=== PATIENT | female | born 1955 | race Caucasian/White ===

== ENCOUNTER → 2017-03-25 | Outpatient (CLI) | payer OTHER ==
--- NOTE | 2017-03-25 14:57 | REPMRS ---
Patient History The patient states she had a clinical breast exam in 02/2017. Patient is postmenopausal. Family history of colorectal cancer in paternal grandfather at age 50 or over and breast cancer in maternal aunt at age 50 or over. Benign excisional biopsy of the right breast, 2004. Taking estrogen for 12 years. Digital Woman Screen Mammo: March 25, 2017 - Exam #: [id number] Bilateral CC and MLO view(s) were taken. Technologist: Janie Marino, Technologist Prior study comparison: March 10, 2016, digital woman screen mammo performed at [facility]. March 05, 2015, digital woman screen mammo performed at [facility]. March 03, 2014, digital woman screen mammo performed at [facility]. FINDINGS: The breast tissue is heterogeneously dense. This may lower the sensitivity of mammography. There is a moderate amount of heterogeneously dense fibroglandular tissue which is fairly symmetric. There is no interval development of dominant mass, architectural distortion, or clustered microcalcification typical of malignancy. There has been no change in the appearance of the mammogram from the prior studies. ASSESSMENT: BI-RADS/ACR category 1 mammogram. Negative. Recommendation Routine screening mammogram of both breasts in 1 year (for women over age 40). This mammogram was interpreted with the aid of an FDA-approved computer-aided dectection system. Electronically Signed By: Adrian Bella MD 03/25/17 [id number]
== END ==
LOC: M WHC 14:02
PROVIDERS: ATTEND Nurse Practitioner Family
DX: Z12.31 Encounter for screening mammogram for malignant neoplasm of breast (principal); Z78.0 Asymptomatic menopausal state

== ENCOUNTER → 2017-03-25 | Outpatient (REF) | payer OTHER | LOC: M SFHCWAGY 14:30 | PROVIDERS: ATTEND Nurse Practitioner Family | DX: Z12.4 Encounter for screening for malignant neoplasm of cervix (principal) ==

== ENCOUNTER → 2018-03-26 | Outpatient (REF) | payer OTHER ==
[2018-03-31 00:06] LABS: HPV HYBRID CAPTURE II Negative (Negative)
== END ==
LOC: M SFHCWAGY 10:01
DX: Z12.4 Encounter for screening for malignant neoplasm of cervix (principal); N95.2 Postmenopausal atrophic vaginitis
CPT/HCPCS: G0123

== ENCOUNTER → 2018-03-26 | Outpatient (CLI) | payer OTHER | LOC: M WHC 09:33 | DX: Z12.31 Encounter for screening mammogram for malignant neoplasm of breast (principal); R92.1 Mammographic calcification found on diagnostic imaging of breast; Z78.0 Asymptomatic menopausal state; Z86.018 Personal history of other benign neoplasm; Z92.23 Personal history of estrogen therapy | CPT/HCPCS: 77067 ==

== ENCOUNTER → 2019-05-13 | Outpatient (CLI) | payer OTHER ==
--- NOTE | 2019-05-13 17:37 | REPMRS ---
Patient History The patient states she had a clinical breast exam in 04/2018. Patient is postmenopausal. Family history of breast cancer at age 50 or over in maternal aunt, colorectal cancer at age 50 or over in paternal grandfather. Benign excisional biopsy of the right breast, 2004. Took estrogen for 13 years. Digital Woman Screen Mammo: May 13, 2019 - Exam #: [id number] Bilateral CC and MLO view(s) were taken. Technologist: Janie Marino, Technologist Prior study comparison: March 26, 2018, bilateral digital woman screen mammo performed at [facility] [place]. March 25, 2017, digital woman screen mammo performed at [facility] [place]. March 10, 2016, digital woman screen mammo performed at [facility]. FINDINGS: The breast tissue is extremely dense which could obscure a lesion on mammography. There is an extremely dense symmetrical pattern of residual fibroglandular tissue. There has been no change in the appearance of the mammogram from the previous studies. There is no interval development of dominant mass, archetectural distortion, or grouped microcalcifications suggestive of malignancy. 3-D tomosynthesis shows no additional findings. Assessment: BI-RADS/ACR category 1 mammogram. Negative Mammogram. Recommendation Routine screening mammogram of both breasts in 1 year (for women over age 40). This patient's Lifetime Breast Cancer RIsk is estimated at 9.2 %. This mammogram was interpreted with the aid of an FDA-approved computer-aided dectection system. Electronically Signed By: Adrian Bella MD 05/13/19 0191
== END ==
LOC: M WHC 11:26
PROVIDERS: ATTEND Nurse Practitioner Family
DX: Z12.31 Encounter for screening mammogram for malignant neoplasm of breast (principal)

== ENCOUNTER → 2020-05-15 | Outpatient (CLI) | payer MEDICARE ==
--- NOTE | 2020-05-15 09:49 | REPMRS ---
Patient History The patient states she had a clinical breast exam in 2020. Family history of breast cancer at age 50 or over in maternal aunt, colorectal cancer at age 50 or over in paternal grandfather. Benign excisional biopsy of the right breast, 2004. Took estrogen for 13 years. 3D TOMOSYNTHESIS WAS PERFORMED. [facility] lifetime risk for breast cancer is 8.8%. Volpara breast density c. Digital Woman Screen Mammo: May 15, 2020 - Exam #: [id number] Bilateral CC and MLO view(s) were taken. Technologist: Noy Rivers, Technologist Prior study comparison: May 13, 2019, bilateral digital woman screen mammo performed at [facility]. March 26, 2018, bilateral digital woman screen mammo performed at [facility]. FINDINGS: The breast tissue is heterogeneously dense. This may lower the sensitivity of mammography. There has been no change in the appearance of the mammogram from the prior studies. There is a moderate amount of residual fibroglandular tissue which is fairly symmetric. There is no interval development of dominant mass, areas of architectural distortion, or clustered microcalcification typical of malignancy. Assessment: BI-RADS/ACR category 1 mammogram. Negative Mammogram. Recommendation Routine screening mammogram in 1 year (for women over age 40). This mammogram was interpreted with the aid of an FDA-approved computer-aided dectection system. Electronically Signed By: Juanito Dumont MD 05/15/20 0948
== END ==
LOC: M WHC 08:30
PROVIDERS: ATTEND Nurse Practitioner Family
DX: Z01.419 Encounter for gynecological examination (general) (routine) without abnormal findings (principal); Z12.31 Encounter for screening mammogram for malignant neoplasm of breast; Z86.018 Personal history of other benign neoplasm; Z92.23 Personal history of estrogen therapy
CPT/HCPCS: 77063; 77067; 87624; G0123; G0463

== ENCOUNTER → 2020-05-15 | Outpatient (REF) | payer MEDICARE | LOC: M SFHCWAGY 13:17 | PROVIDERS: ATTEND Nurse Practitioner Family | DX: Z12.4 Encounter for screening for malignant neoplasm of cervix (principal); N95.2 Postmenopausal atrophic vaginitis | CPT/HCPCS: 87624; G0123 ==

== ENCOUNTER → 2020-05-17 | Outpatient (CLI) | payer MEDICARE ==
--- NOTE | 2020-05-17 10:45 | DEXAMM ---
INDICATION: Z78.0 ASYMPTOMATIC MENOPAUSAL STATE. COMPARISON: 03/05/2015 as well as other prior exams. TECHNIQUE: Bone density was measured using dual-energy x-ray absorptiometry (DEXA). FINDINGS: AP SPINE L1-L4 BMD 1.076 g/cm2 Young Adult T-Score is -1.0 Age Matched Z-Score . LT FEMUR, TOTAL BMD 0.6 0.839 g/cm2 Young Adult T-Score -1.3 Age Matched Z-Score -0.1. LT NECK BMD 0.816 g/cm2 Young Adult T-Score -1.6 Age Matched Z-Score -0.1. RT FEMUR, TOTAL BMD 0.854 g/cm2 Young Adult T-Score -1.2 Age Matched Z-Score 0.0. RT NECK BMD 0.859 g/cm2 Young Adult T-Score -1.3 Age Matched Z-Score 0.2. IMPRESSION: There is low bone density of the spine. There is low bone density of the left hip. There is low bone density of the right hip. The density of the spine has decreased 8.0% since the initial exam on 04/29/2005. The density of the spine decreased 2.0% since most recent exam on 03/05/2015. The density of the left hip has decreased 13.2% since initial exam on 04/29/2005. The density of the left hip has decreased 6.0% since most recent exam on 03/05/2015. The density of the right hip has decreased 8.2% since the initial exam on 04/29/2005. The density of the right hip has decreased 1.5% since the most recent exam on 03/05/2015. FOLLOW-UP: Recommendation for the next bone density exam: 2 years. <Electronically signed by Juanito Dumont > 05/17/20 [id number]
== END ==
LOC: M WHC 10:02
PROVIDERS: ATTEND Nurse Practitioner Family
DX: Z78.0 Asymptomatic menopausal state (principal)

== ENCOUNTER → 2021-05-22 | Outpatient (CLI) | payer MEDICARE | LOC: M WHC 08:01 | PROVIDERS: ATTEND Nurse Practitioner Women's Health | DX: Z12.31 Encounter for screening mammogram for malignant neoplasm of breast (principal); Z80.3 Family history of malignant neoplasm of breast; Z86.018 Personal history of other benign neoplasm; Z92.23 Personal history of estrogen therapy ==

== ENCOUNTER → 2022-08-14 | Outpatient (CLI) | payer MEDICARE | LOC: M WHC 13:32 | PROVIDERS: ATTEND Nurse Practitioner Family | DX: Z12.31 Encounter for screening mammogram for malignant neoplasm of breast (principal) ==

== ENCOUNTER → 2022-08-14 | Outpatient (REF) | payer MEDICARE | LOC: M PLALAB 14:46 | PROVIDERS: ATTEND Nurse Practitioner Family | DX: Z12.4 Encounter for screening for malignant neoplasm of cervix (principal) | CPT/HCPCS: 87624; G0123 ==

== ENCOUNTER → 2023-08-28 | Outpatient (CLI) | payer MEDICARE | LOC: M WHC 08:23 | PROVIDERS: ATTEND Nurse Practitioner Family | DX: Z13.820 Encounter for screening for osteoporosis (principal); Z12.31 Encounter for screening mammogram for malignant neoplasm of breast; Z78.0 Asymptomatic menopausal state ==

== ENCOUNTER → 2023-08-28 | Outpatient (CLI) | payer MEDICARE | LOC: M WHC 08:22 | PROVIDERS: ATTEND Nurse Practitioner Family | DX: Z12.31 Encounter for screening mammogram for malignant neoplasm of breast (principal); Z13.820 Encounter for screening for osteoporosis ==